=== PATIENT | female | born 1985 | race Caucasian/White ===

== ENCOUNTER 2024-07-21 17:55 | Emergency (ER) | payer MEDICAID ==
[~2024-07-21] VITALS: Ht 162.6 cm; Wt 64.5 kg
[2024-07-21 17:57] VITALS: PULSE 113; RESP 20; O2SAT 98
[2024-07-21 18:02] VITALS: BP 144/105; TEMP 36.8; O2SAT 99
[2024-07-21 18:59] LABS: CHLORIDE 97 mEq/L (98-107); POTASSIUM 3.4 mEq/L (3.5-5.1); SODIUM 135 mEq/L (136-145)
[2024-07-21 19:00] LABS: CALCIUM 10.3 mg/dL (8.7-10.4); CARBON DIOXIDE 24 mEq/L (21-32)
[2024-07-21 19:05] LABS: CREATININE 0.8 mg/dL (0.6-1.0); GLUCOSE 95 mg/dL (70-105); UREA NITROGEN BLOOD 8 mg/dL (9-23)
[2024-07-21 19:07] LABS: ALANINE AMINOTRANSFERASE 85 IU/L (10-49); ALBUMIN 4.9 g/dL (3.2-4.8); ASPARTATE AMINOTRANSFERASE 132 IU/L (<34); BILIRUBIN TOTAL 2.2 mg/dL (0.1-1.0)
[2024-07-21 19:08] LABS: PROTEIN TOTAL 8.7 g/dL (6.0-8.3)
[2024-07-21 19:16] LABS: HCG SCREEN NEGATIVE
[2024-07-21 19:31] LABS: INR 1.1; PARTIAL THROMBOPLASTIN TIME 27.3 sec (23.4-31.0); PROTHROMBIN TIME 11.9 sec (9.6-11.0)
[2024-07-21 19:42] LABS: BASOPHILS % 0.7 % (0.0-2.0); EOSINOPHILS % 0.8 % (0.0-5.0); HEMATOCRIT. 39.2 % (36.0-48.0); HEMOGLOBIN. 13.6 g/dL (12.0-16.0); LYMPHOCYTES % 16.2 % (20.0-50.0); MEAN CORPUSCULAR HEMOGLOBIN 33.2 pg (28.0-32.0); MEAN CORPUSCULAR HGB CONC 34.7 g/dL (31.0-37.0); MEAN CORPUSCULAR VOLUME 95.8 fL (81.0-99.0); MEAN PLATELET VOLUME 8.4 fl (7.4-10.4); MONOCYTES % 14.8 % (2.0-8.0); NEUTROPHILS % 67.5 % (40.0-76.0); RED BLOOD CELL COUNT 4.09 mill/uL (4.2-5.4); RED CELL DISTRIBUTION WIDTH 13.6 % (11.6-14.6); WHITE BLOOD COUNT 3.5 x1000/uL (4.5-11.0)
[2024-07-21 19:43] LABS: DIFFERENTIAL COMMENT 1
[2024-07-21] MEDS ORDERED: DEXA6TAB MT (21:24)
[2024-07-22 12:21] LABS: PLATELET 43 x1000/uL (130-400)
== END 2024-07-21 21:53 | disposition home or self-care (01) ==
LOC: ER 17:55
DX: D69.6 Thrombocytopenia, unspecified (principal)
CPT/HCPCS: 36415; 80048; 80076; 84703; 85025; 99283